=== PATIENT | female | born 1955 | race Caucasian/White ===

== ENCOUNTER 2022-03-23 04:42 | Inpatient (IN) ==
[2022-03-23] MEDS ORDERED: HYDROmorphone 1 MG/1 ML SYRINGE IV STA (05:10)
[2022-03-23] MEDS ORDERED: ONDANSETRON 4 MG/2 ML VIAL IV STA (05:11)
[2022-03-23] MEDS ORDERED: LACTATED RINGERS 1,000 ML IV SCH (05:20)
[2022-03-23 05:27] LABS: Bilirubin,Urine Negative (Negative); Blood, Urine Negative (Negative); Glucose,Urine (UA) Negative (Negative); Ketones,Urine Negative (Negative); Nitrite,Urine Negative (Negative); Protein,Urine Negative (Negative); RBC,Urine 1 /HPF (0-4); Squamous Epithelial Cell,Urine Occasional /HPF (0-10); Urine Appearance Clear (Clear); Urine Color Yellow (Yellow); Urine Specific Gravity < 1.005 (1.001-1.035); Urine Urobilinogen 0.2 eU/dL (<2.0); Urine pH 5.5 (4.5-8.0)
[2022-03-23] MEDS ORDERED: ACETAMINOPHEN 325 MG TABLET PO PRN (07:30)
[2022-03-23] MEDS ORDERED: DEXTROSE 10% 250 ML BAG IV PRN (07:30)
[2022-03-23] MEDS ORDERED: ALBUTEROL 2.5 MG/3 ML NEB RESP TX PRN (07:30)
[2022-03-23] MEDS ORDERED: GLUCAGON 1 MG VIAL IM PRN (07:30)
[2022-03-23] MEDS ORDERED: ONDANSETRON 4 MG/2 ML VIAL IV PRN (07:30)
[2022-03-23] MEDS: INSULIN REGULAR 100 UNIT/ML SUBCUT SCH ×3 (10:03→17:08)
[2022-03-23] MEDS: OLANZAPINE SAMIDORPHAN PO SCH (10:05)
[2022-03-23] MEDS: CARIPRAZINE 1.5 MG PO SCH (10:05)
[2022-03-23] MEDS: LACTATED RINGERS 1,000 ML IV SCH (10:05)
[2022-03-23] MEDS: lamoTRIgine 25 MG TABLET PO SCH ×2 (10:06→22:13)
[2022-03-23] MEDS: sitaGLIPtin 100 MG TABLET PO SCH (10:06)
[2022-03-23] MEDS: METOPROLOL SUCCINATE XL 100 MG TABLET PO SCH (10:06)
[2022-03-23] MEDS: clonazePAM 0.5 MG TABLET PO SCH ×2 (10:07→22:14)
[2022-03-23] MEDS: FUROSEMIDE 20 MG TABLET PO SCH (10:07)
[2022-03-23] MEDS: lisinopriL 5 MG TABLET PO SCH (10:07)
[2022-03-23] MEDS: GABAPENTIN 600 MG TABLET PO SCH ×3 (10:07→22:14)
[2022-03-23] MEDS: ALBUTEROL/IPRATROPIUM 3 ML NEB RESP TX SCH ×5 (10:08→23:40)
[2022-03-23] MEDS: PANTOPRAZOLE 40 MG VIAL IV SCH (10:09)
[2022-03-23] MEDS: KETOROLAC 30 MG/1 ML VIAL IV SCH ×3 (12:54→22:31)
[2022-03-23] MEDS: SIMVASTATIN 20 MG TABLET PO SCH (22:14)
[2022-03-23] MEDS: WARFARIN 2.5 MG TABLET PO SCH (22:14)
[2022-03-23] MEDS: HYDROmorphone 1 MG/1 ML SYRINGE IV PRN (22:37)
[2022-03-24] MEDS: INSULIN REGULAR 100 UNIT/ML SUBCUT SCH ×4 (00:46→17:00)
[2022-03-24] MEDS: LACTATED RINGERS 1,000 ML IV SCH (01:59)
[2022-03-24] MEDS: ALBUTEROL/IPRATROPIUM 3 ML NEB RESP TX SCH ×5 (03:15→19:24)
[2022-03-24] MEDS: KETOROLAC 30 MG/1 ML VIAL IV SCH ×3 (05:56→16:37)
[2022-03-24 06:19] LABS: Basophils % 0.4 % (0.0-0.8); Eosinophils # 0.3 10*3/uL (0.0-0.87); Eosinophils % 3.3 % (0.00-10.9); Hematocrit 33.6 VOL% (35.7-47.0); Hemoglobin 10.9 GM/DL (12.0-16.0); Immature Granulocytes % 0.5 %; Immature Granulocytes Absolute 0.05 #; Lymphocytes # 2.2 10*3/uL (1.4-4.0); Lymphocytes % 22.3 % (21.3-54.2); Mean Corpuscular HGB Conc 32.4 GM/DL (32-36); Mean Corpuscular Volume 103.1 FL (87-102); Mean Platelet Volume 9.8 FL (9.6-12.0); Monocytes # 0.9 10*3/uL (0.11-0.8); Monocytes % 8.5 % (1.7-12.7); Platelet Count 193 T/CUMM (130-400); Red Blood Count 3.26 MC/CUMM (3.8-5.5); White Blood Count 10.1 T/CUMM (4-12)
[2022-03-24 06:28] LABS: INR 1.1; PT Patient Result 11.9 SECS (10.5-12.0)
[2022-03-24 06:40] LABS: Eosinophils 5 % (0-10); Lymphocytes 23 % (20-55); Total Cells Counted 100
[2022-03-24 06:41] LABS: Alanine Aminotransferase 55 U/L (13-56); Albumin 2.6 G/DL (3.4-5.0); Alkaline Phosphatase 93 U/L (45-117); Aspartate Amino Transferase 60 U/L (0-37); Bilirubin,Total < 0.39 MG/DL (0.20-1.00); Blood Urea Nitrogen 15 MG/DL (7-18); Calcium 8.7 MG/DL (8.5-10.1); Carbon Dioxide 25 MMOL/L (21-32); Chloride 105 MMOL/L (98-107); Glucose 125 MG/DL (74-106); Platelet Estimate Adequate; Potassium 4.1 MMOL/L (3.5-5.1); Sodium 136 MMOL/L (136-145); Total Protein 5.7 G/DL (6.4-8.2)
[2022-03-24] MEDS: METOPROLOL SUCCINATE XL 100 MG TABLET PO SCH (08:55)
[2022-03-24] MEDS: HYDROmorphone 1 MG/1 ML SYRINGE IV PRN (08:55)
[2022-03-24] MEDS: sitaGLIPtin 100 MG TABLET PO SCH (08:55)
[2022-03-24] MEDS: GABAPENTIN 600 MG TABLET PO SCH ×3 (08:55→22:23)
[2022-03-24] MEDS: lisinopriL 5 MG TABLET PO SCH (08:55)
[2022-03-24] MEDS: PANTOPRAZOLE 40 MG VIAL IV SCH (08:55)
[2022-03-24] MEDS: lamoTRIgine 25 MG TABLET PO SCH ×2 (08:55→22:26)
[2022-03-24] MEDS: clonazePAM 0.5 MG TABLET PO SCH ×2 (08:55→22:24)
[2022-03-24] MEDS: FUROSEMIDE 20 MG TABLET PO SCH (08:55)
[2022-03-24] MEDS: OLANZAPINE SAMIDORPHAN PO SCH (09:03)
[2022-03-24] MEDS: CARIPRAZINE 1.5 MG PO SCH (09:03)
[2022-03-24] MEDS ORDERED: BUPIVACAINE MPF 0.25% 10 ML VIAL ONE (13:51)
[2022-03-24] MEDS ORDERED: LIDOCAINE 1%/EPI INJ 20 ML VIAL ONE (13:52)
[2022-03-24] MEDS ORDERED: fentaNYL 100 MCG/2 ML VIAL ONE (14:34)
[2022-03-24] MEDS ORDERED: BUPIVACAINE LIPOSOMAL 20 ML/266 MG VIAL ONE (14:34)
[2022-03-24] MEDS ORDERED: METOCLOPRAMIDE 10 MG/2 ML VIAL ONE (14:41)
[2022-03-24] MEDS ORDERED: propofoL 200 MG/20 ML VIAL IV ONE (14:42)
[2022-03-24] MEDS ORDERED: LIDOCAINE 2% 5 ML VIAL ONE (14:42)
[2022-03-24] MEDS ORDERED: SUCCINYLCHOLINE 200 MG/10 ML VIAL ONE (14:42)
[2022-03-24] MEDS ORDERED: SEVOFLURANE 1 UNIT/15 MINUTE INH ONE (15:19)
[2022-03-24] MEDS: SIMVASTATIN 20 MG TABLET PO SCH (22:24)
[2022-03-24] MEDS: WARFARIN 2.5 MG TABLET PO SCH (22:26)
[2022-03-25] MEDS: ALBUTEROL/IPRATROPIUM 3 ML NEB RESP TX SCH ×7 (00:10→22:50)
[2022-03-25] MEDS: KETOROLAC 30 MG/1 ML VIAL IV SCH ×5 (00:15→23:13)
[2022-03-25] MEDS: INSULIN REGULAR 100 UNIT/ML SUBCUT SCH ×4 (00:17→17:11)
[2022-03-25] MEDS: LACTATED RINGERS 1,000 ML IV SCH (05:38)
[2022-03-25 05:50] LABS: Basophils % 0.5 % (0.0-0.8); Eosinophils # 0.4 10*3/uL (0.0-0.87); Eosinophils % 5.2 % (0.00-10.9); Hemoglobin 10.1 GM/DL (12.0-16.0); Immature Granulocytes % 0.5 %; Immature Granulocytes Absolute 0.04 #; Lymphocytes # 2.6 10*3/uL (1.4-4.0); Lymphocytes % 31.1 % (21.3-54.2); Mean Corpuscular HGB Conc 32.6 GM/DL (32-36); Mean Corpuscular Volume 102.6 FL (87-102); Mean Platelet Volume 9.6 FL (9.6-12.0); Monocytes # 0.8 10*3/uL (0.11-0.8); Monocytes % 9.2 % (1.7-12.7); Neutrophils % 53.5 % (38.7-73.9); Platelet Count 187 T/CUMM (130-400); Red Blood Count 3.02 MC/CUMM (3.8-5.5); Red Cell Distribution Width 14.8 % (9.3-17.3); White Blood Count 8.2 T/CUMM (4-12)
[2022-03-25 06:12] LABS: Band Neutrophils 1 % (0-10); Eosinophils 4 % (0-10); Lymphocytes 36 % (20-55); Platelet Estimate Normal; Total Cells Counted 100
[2022-03-25 06:13] LABS: Macrocytosis 1+
[2022-03-25] MEDS: lamoTRIgine 25 MG TABLET PO SCH ×2 (08:13→20:11)
[2022-03-25] MEDS: PANTOPRAZOLE 40 MG VIAL IV SCH (08:13)
[2022-03-25] MEDS: METOPROLOL SUCCINATE XL 100 MG TABLET PO SCH (08:13)
[2022-03-25] MEDS: lisinopriL 5 MG TABLET PO SCH (08:13)
[2022-03-25] MEDS: FUROSEMIDE 20 MG TABLET PO SCH (08:13)
[2022-03-25] MEDS: GABAPENTIN 600 MG TABLET PO SCH ×3 (08:13→20:11)
[2022-03-25] MEDS: clonazePAM 0.5 MG TABLET PO SCH ×2 (08:13→20:11)
[2022-03-25] MEDS: sitaGLIPtin 100 MG TABLET PO SCH (08:14)
[2022-03-25] MEDS: CARIPRAZINE 1.5 MG PO SCH (08:59)
[2022-03-25] MEDS: OLANZAPINE SAMIDORPHAN PO SCH (08:59)
[2022-03-25] MEDS ORDERED: NICOTINE 14 MG/24 HR PATCH TRANSDERM PRN (12:18)
[2022-03-25] MEDS: HYDROmorphone 1 MG/1 ML SYRINGE IV PRN ×2 (17:23→21:18)
[2022-03-25] MEDS: SIMVASTATIN 20 MG TABLET PO SCH (20:11)
[2022-03-25] MEDS: WARFARIN 2.5 MG TABLET PO SCH (20:11)
[2022-03-26] MEDS: INSULIN REGULAR 100 UNIT/ML SUBCUT SCH ×4 (00:17→17:46)
[2022-03-26] MEDS: ALBUTEROL/IPRATROPIUM 3 ML NEB RESP TX SCH ×6 (03:00→23:38)
[2022-03-26] MEDS: HYDROmorphone 1 MG/1 ML SYRINGE IV PRN ×3 (04:10→20:33)
[2022-03-26] MEDS: KETOROLAC 30 MG/1 ML VIAL IV SCH ×4 (04:51→23:09)
[2022-03-26] MEDS: lamoTRIgine 25 MG TABLET PO SCH ×2 (08:23→20:33)
[2022-03-26] MEDS: METOPROLOL SUCCINATE XL 100 MG TABLET PO SCH (08:23)
[2022-03-26] MEDS: clonazePAM 0.5 MG TABLET PO SCH ×2 (08:23→20:33)
[2022-03-26] MEDS: FUROSEMIDE 20 MG TABLET PO SCH (08:23)
[2022-03-26] MEDS: sitaGLIPtin 100 MG TABLET PO SCH (08:23)
[2022-03-26] MEDS: GABAPENTIN 600 MG TABLET PO SCH ×3 (08:23→20:33)
[2022-03-26] MEDS: lisinopriL 5 MG TABLET PO SCH (08:23)
[2022-03-26] MEDS: PANTOPRAZOLE 40 MG VIAL IV SCH (08:24)
[2022-03-26] MEDS: CARIPRAZINE 1.5 MG PO SCH (08:30)
[2022-03-26] MEDS: OLANZAPINE SAMIDORPHAN PO SCH (08:31)
[2022-03-26] MEDS: SIMVASTATIN 20 MG TABLET PO SCH (20:33)
[2022-03-26] MEDS: WARFARIN 2.5 MG TABLET PO SCH (20:33)
[2022-03-27] MEDS: INSULIN REGULAR 100 UNIT/ML SUBCUT SCH ×4 (00:59→17:42)
[2022-03-27] MEDS: HYDROmorphone 1 MG/1 ML SYRINGE IV PRN ×4 (01:00→21:48)
[2022-03-27] MEDS: ALBUTEROL/IPRATROPIUM 3 ML NEB RESP TX SCH ×6 (03:39→23:23)
[2022-03-27] MEDS: KETOROLAC 30 MG/1 ML VIAL IV SCH ×4 (06:13→22:59)
[2022-03-27] MEDS: CARIPRAZINE 1.5 MG PO SCH (08:25)
[2022-03-27] MEDS: OLANZAPINE SAMIDORPHAN PO SCH (08:25)
[2022-03-27] MEDS: PANTOPRAZOLE 40 MG VIAL IV SCH (08:43)
[2022-03-27] MEDS: METOPROLOL SUCCINATE XL 100 MG TABLET PO SCH (08:43)
[2022-03-27] MEDS: lisinopriL 5 MG TABLET PO SCH (08:43)
[2022-03-27] MEDS: sitaGLIPtin 100 MG TABLET PO SCH (08:44)
[2022-03-27] MEDS: FUROSEMIDE 20 MG TABLET PO SCH (08:44)
[2022-03-27] MEDS: GABAPENTIN 600 MG TABLET PO SCH ×3 (08:44→21:41)
[2022-03-27] MEDS: clonazePAM 0.5 MG TABLET PO SCH ×2 (08:44→21:40)
[2022-03-27] MEDS: lamoTRIgine 25 MG TABLET PO SCH ×2 (08:44→21:40)
[2022-03-27] MEDS: SIMVASTATIN 20 MG TABLET PO SCH (21:40)
[2022-03-27] MEDS: WARFARIN 2.5 MG TABLET PO SCH (21:40)
[2022-03-28] MEDS: INSULIN REGULAR 100 UNIT/ML SUBCUT SCH ×4 (01:12→17:59)
[2022-03-28] MEDS: ALBUTEROL/IPRATROPIUM 3 ML NEB RESP TX SCH ×5 (03:19→20:00)
[2022-03-28 04:56] LABS: INR 1.1; PT Patient Result 12.4 SECS (10.5-12.0)
[2022-03-28] MEDS: KETOROLAC 30 MG/1 ML VIAL IV SCH (05:06)
[2022-03-28] MEDS: lisinopriL 5 MG TABLET PO SCH (08:00)
[2022-03-28] MEDS: PANTOPRAZOLE 40 MG VIAL IV SCH (08:00)
[2022-03-28] MEDS: sitaGLIPtin 100 MG TABLET PO SCH (08:01)
[2022-03-28] MEDS: lamoTRIgine 25 MG TABLET PO SCH ×2 (08:01→20:46)
[2022-03-28] MEDS: FUROSEMIDE 20 MG TABLET PO SCH (08:01)
[2022-03-28] MEDS: clonazePAM 0.5 MG TABLET PO SCH ×2 (08:01→20:46)
[2022-03-28] MEDS: METOPROLOL SUCCINATE XL 100 MG TABLET PO SCH (08:01)
[2022-03-28] MEDS: GABAPENTIN 600 MG TABLET PO SCH ×3 (08:01→20:46)
[2022-03-28] MEDS: HYDROmorphone 1 MG/1 ML SYRINGE IV PRN ×3 (08:02→20:46)
[2022-03-28] MEDS: CARIPRAZINE 1.5 MG PO SCH (08:07)
[2022-03-28] MEDS: OLANZAPINE SAMIDORPHAN PO SCH (08:08)
[2022-03-28] MEDS: WARFARIN 2.5 MG TABLET PO SCH (20:46)
[2022-03-28] MEDS: SIMVASTATIN 20 MG TABLET PO SCH (20:46)
[2022-03-29] MEDS: ALBUTEROL/IPRATROPIUM 3 ML NEB RESP TX SCH ×7 (00:15→23:27)
[2022-03-29] MEDS: INSULIN REGULAR 100 UNIT/ML SUBCUT SCH ×5 (00:45→17:02)
[2022-03-29] MEDS: HYDROmorphone 1 MG/1 ML SYRINGE IV PRN ×4 (03:12→18:04)
[2022-03-29] MEDS: clonazePAM 0.5 MG TABLET PO SCH ×2 (09:39→21:02)
[2022-03-29] MEDS: GABAPENTIN 600 MG TABLET PO SCH ×3 (09:39→21:03)
[2022-03-29] MEDS: sitaGLIPtin 100 MG TABLET PO SCH (09:39)
[2022-03-29] MEDS: lisinopriL 5 MG TABLET PO SCH (09:39)
[2022-03-29] MEDS: FUROSEMIDE 20 MG TABLET PO SCH (09:40)
[2022-03-29] MEDS: PANTOPRAZOLE 40 MG VIAL IV SCH (09:40)
[2022-03-29] MEDS: METOPROLOL SUCCINATE XL 100 MG TABLET PO SCH (09:40)
[2022-03-29] MEDS: lamoTRIgine 25 MG TABLET PO SCH ×2 (09:40→21:03)
[2022-03-29] MEDS: CARIPRAZINE 1.5 MG PO SCH (10:08)
[2022-03-29] MEDS: OLANZAPINE SAMIDORPHAN PO SCH (10:09)
[2022-03-29] MEDS: WARFARIN 2.5 MG TABLET PO SCH (21:02)
[2022-03-29] MEDS: SIMVASTATIN 20 MG TABLET PO SCH (21:03)
[2022-03-30] MEDS: ALBUTEROL/IPRATROPIUM 3 ML NEB RESP TX SCH ×6 (03:21→23:55)
[2022-03-30] MEDS: HYDROmorphone 1 MG/1 ML SYRINGE IV PRN ×2 (06:40)
[2022-03-30] MEDS: INSULIN REGULAR 100 UNIT/ML SUBCUT SCH ×5 (06:43→17:09)
[2022-03-30] MEDS: clonazePAM 0.5 MG TABLET PO SCH ×2 (09:21→21:13)
[2022-03-30] MEDS: PANTOPRAZOLE 40 MG VIAL IV SCH (09:21)
[2022-03-30] MEDS: FUROSEMIDE 20 MG TABLET PO SCH (09:21)
[2022-03-30] MEDS: GABAPENTIN 600 MG TABLET PO SCH ×3 (09:21→21:13)
[2022-03-30] MEDS: sitaGLIPtin 100 MG TABLET PO SCH (09:21)
[2022-03-30] MEDS: lisinopriL 5 MG TABLET PO SCH (09:21)
[2022-03-30] MEDS: lamoTRIgine 25 MG TABLET PO SCH ×2 (09:21→21:13)
[2022-03-30] MEDS: METOPROLOL SUCCINATE XL 100 MG TABLET PO SCH (09:21)
[2022-03-30] MEDS: CARIPRAZINE 1.5 MG PO SCH (09:22)
[2022-03-30] MEDS ORDERED: HYDROmorphone 1 MG/1 ML SYRINGE IV PRN (09:22)
[2022-03-30] MEDS: OLANZAPINE SAMIDORPHAN PO SCH (09:22)
[2022-03-30] MEDS: WARFARIN 2.5 MG TABLET PO SCH (21:13)
[2022-03-30] MEDS: SIMVASTATIN 20 MG TABLET PO SCH (21:13)
[2022-03-31] MEDS: INSULIN REGULAR 100 UNIT/ML SUBCUT SCH ×4 (01:45→18:23)
[2022-03-31] MEDS: ALBUTEROL/IPRATROPIUM 3 ML NEB RESP TX SCH ×5 (03:15→20:25)
[2022-03-31] MEDS ORDERED: LORazepam 2 MG/1 ML VIAL IV ONE (08:17)
[2022-03-31] MEDS: lamoTRIgine 25 MG TABLET PO SCH ×2 (08:53→21:11)
[2022-03-31] MEDS: METOPROLOL SUCCINATE XL 100 MG TABLET PO SCH (08:53)
[2022-03-31] MEDS: FUROSEMIDE 20 MG TABLET PO SCH (08:53)
[2022-03-31] MEDS: lisinopriL 5 MG TABLET PO SCH (08:53)
[2022-03-31] MEDS: sitaGLIPtin 100 MG TABLET PO SCH (08:53)
[2022-03-31] MEDS: GABAPENTIN 600 MG TABLET PO SCH ×3 (08:53→21:11)
[2022-03-31] MEDS: PANTOPRAZOLE 40 MG VIAL IV SCH (09:01)
[2022-03-31] MEDS: OLANZAPINE SAMIDORPHAN PO SCH (09:06)
[2022-03-31] MEDS: CARIPRAZINE 1.5 MG PO SCH (09:06)
[2022-03-31] MEDS: clonazePAM 0.5 MG TABLET PO SCH ×2 (11:13→21:11)
[2022-03-31] MEDS: SIMVASTATIN 20 MG TABLET PO SCH (21:11)
[2022-03-31] MEDS: WARFARIN 2.5 MG TABLET PO SCH (21:13)
[2022-04-01] MEDS: INSULIN REGULAR 100 UNIT/ML SUBCUT SCH ×3 (00:26→11:35)
[2022-04-01] MEDS: ALBUTEROL/IPRATROPIUM 3 ML NEB RESP TX SCH ×3 (03:00→11:20)
[2022-04-01] MEDS: GABAPENTIN 600 MG TABLET PO SCH (09:15)
[2022-04-01] MEDS: FUROSEMIDE 20 MG TABLET PO SCH (09:15)
[2022-04-01] MEDS: lisinopriL 5 MG TABLET PO SCH (09:15)
[2022-04-01] MEDS: METOPROLOL SUCCINATE XL 100 MG TABLET PO SCH (09:15)
[2022-04-01] MEDS: lamoTRIgine 25 MG TABLET PO SCH (09:15)
[2022-04-01] MEDS: clonazePAM 0.5 MG TABLET PO SCH (09:15)
[2022-04-01] MEDS: sitaGLIPtin 100 MG TABLET PO SCH (09:15)
[2022-04-01] MEDS: PANTOPRAZOLE 40 MG VIAL IV SCH (09:19)
[2022-04-01] MEDS: CARIPRAZINE 1.5 MG PO SCH (11:31)
[2022-04-01] MEDS: OLANZAPINE SAMIDORPHAN PO SCH (11:31)
[2022-04-01 11:44] VITALS: BP 101/50
== END 2022-04-01 12:44 | disposition home or self-care (01) | DRG 200 ==
LOC: EDUNIT# → EDBD → N.ED 04:42 → N.EDINP 04:42 → N.3E 05:18
PROVIDERS: ADMIT Surgery; ATTEND Surgery